=== PATIENT | male | born 1990 | race Caucasian/White ===

== ENCOUNTER 2019-11-08 22:05 | Emergency (ER) | payer OTHER ==
[2019-11-08] MEDS ORDERED: Bacitracin Oint 1 GM U/D Packet TOP ONE (22:19)
[2019-11-08] MEDS ORDERED: Diphtheria,Pertussis(Acell),Tetanus Vaccine 0.5 ML Syringe IM ONE (22:19)
--- NOTE | 2019-11-08 22:25 | EDM.PDOC ---
ED HPI GENERAL MEDICAL PROBLEM - General Chief Complaint: Laceration Stated Complaint: FINGER INJURY RIGHT HAND Time Seen by Provider: 11/08/19 22:14 - History of Present Illness INITIAL COMMENTS - FREE TEXT/NARRATIVE: HISTORY AND PHYSICAL: History of present illness: The patient is a 29-year-old male who is unsure of his tetanus status and has no systemic complaints and presents from work after having his left fifth digit pinched in a piece of machinery. He complains of numbness and discomfort to the finger and a laceration on the dorsal aspect of the finger. The patient is right -hand dominant and denies any other injuries to the remainder of the fingers on the left hand and the hand proximally. Prior to these events he was in his usual state of good health without any issues. He says that movement of the finger causes him discomfort. Review of systems: As per history of present illness and below otherwise all systems reviewed and negative. Past medical history: As per history of present illness and as reviewed below otherwise noncontributory. Surgical history: As per history of present illness and as reviewed below otherwise noncontributory. Social history: No reported history of drug or alcohol abuse. Family history: As per history of present illness and as reviewed below otherwise noncontributory. Physical exam: General: Well developed well-nourished man who is nontoxic and vital signs are noted by me. HEENT: Atraumatic, normocephalic, negative for conjunctival pallor or scleral icterus, mucous membranes moist, throat clear, neck supple, nontender, trachea midline. Lungs: Clear to auscultation, breath sounds equal bilaterally, chest nontender. Heart: S1S2, regular rate and rhythm no overt murmurs Abdomen: Soft, nondistended, nontender. NABS Pelvis: deferred Genitourinary: Deferred. Rectal: Deferred. Extremities: Atraumatic and full range of motion of all extremities with the exception of the left fifth digit where there is discomfort with range of motion but the patient can flex and extend against resistance and there is a 2 cm laceration to the subcutaneous tissue at the middle phalanx. There is no gross soft tissue swelling ecchymosis or erythema and the remainder of the digits on the left hand are without defects deformities or injuries as is the remainder of the left hand and the proximal wrist and forearm., negative for cords or calf pain. Neurovascular unremarkable. Neuro: Awake, alert, oriented. Cranial nerves II through XII unremarkable. Cerebellum unremarkable. Motor and sensory unremarkable throughout. Exam nonfocal. Diagnostics: X-ray left fifth digit Therapeutics: Tdap, irrigation of the wound, lidocaine without epinephrine for suture placement, bacitracin and tube gauze Procedure note: After the wound was cleansed by nursing a digital block was placed with 1% lidocaine without epinephrine and the wound was explored. No foreign bodies were appreciated and the tissue at the skin edges was noted to be very jagged and irregular and some minimal debridement was performed. The skin edges were reapproximated using a total number of # 4 sutures of 4-0 nylon in a simple interrupted fashion. There were no complications and the patient tolerated the procedure well. Bacitracin and a tube gauze was applied by nursing. Impression: Left fifth digit laceration/injury Definitive disposition and diagnosis as appropriate pending reevaluation and review of above. Left Pinky Finger Pain Score (Numeric/FACES): 7 - Related Data Allergies Allergy/AdvReac Type Severity Reaction Status Date / Time No Known Allergies Allergy Verified 11/08/19 22:22 Home Meds: Home Meds . [No Known Home Meds] 11/08/19 [History] ED ROS GENERAL - Review of Systems Review Of Systems: Comprehensive ROS is negative, except as noted in HPI. ED EXAM, SKIN/RASH Exam: See Below (See dictation) Course - Vital Signs Last Recorded V/S: Last Vital Signs Temp 35.8 C 11/08/19 22:19 Pulse 87 11/08/19 22:19 Resp 18 11/08/19 22:19 BP 162/94 H 11/08/19 22:19 Pulse Ox 100 11/08/19 22:19 - Orders/Labs/Meds Orders: Active Orders 24 hr Category Date Time Status Vaccines to be Administered [RC] PER UNIT ROUTINE Care 11/08/19 22:19 Active Fingers Fifth Digit Lt F4 [CR] Stat Exams 11/08/19 22:19 Taken Meds: Medications Discontinued Medications Generic Name Dose Route Start Last Admin Trade Name Freq PRN Reason Stop Dose Admin Bacitracin 1 dose 11/08/19 22:19 Bacitracin Oint 1 Gm TOP 11/08/19 22:20 ONETIME ONE Diphtheria/Tetanus/Acell Pertussis 0.5 ml 11/08/19 22:19 11/08/19 22:36 Adacel IM 11/08/19 22:20 0.5 ml .ONCE ONE Administration Lidocaine HCl 5 ml 11/08/19 22:19 Xylocaine-Mpf 1% INJECT 11/08/19 22:20 ONETIME ONE Departure - Departure Time of Disposition: 22:55 Disposition: Home, Self-Care 01 Condition: Good Clinical Impression: Finger laceration Qualifiers: Encounter type: initial encounter Finger: little finger Damage to nail status: without damage Foreign body presence: without foreign body Laterality: left Qualified Code(s): S61.217A - Laceration without foreign body of left little finger without damage to nail, initial encounter - Discharge Information Referrals: PCP,None [Primary Care Provider] - Forms: ED Department Discharge Additional Instructions: The following information is given to patients seen in the emergency department who are being discharged to home. This information is to outline your options for follow-up care. We provide all patients seen in our emergency department with a follow-up referral. The need for follow-up, as well as the timing and circumstances, are variable depending upon the specifics of your emergency department visit. If you don't have a primary care physician on staff, we will provide you with a referral. We always advise you to contact your personal physician following an emergency department visit to inform them of the circumstance of the visit and for follow-up with them and/or the need for any referrals to a consulting specialist. The emergency department will also refer you to a specialist when appropriate. This referral assures that you have the opportunity for followup care with a specialist. All of these measure are taken in an effort to provide you with optimal care, which includes your followup. Under all circumstances we always encourage you to contact your private physician who remains a resource for coordinating your care. When calling for followup care, please make the office aware that this follow-up is from your recent emergency room visit. If for any reason you are refused follow-up, please contact the [facility] emergency department at and ask to speak to the emergency department charge nurse. [facility] Primary care- Internal Medicine and Family [address] [address] Keep the wound clean and dry for the next 24 hours and then remove dressing and cleanse with mild soap and water pat dry and apply bacitracin or Neosporin. If you need to cover the area please use gauze or breathable dressing and do not apply a Band-Aid. Sutures should be removed in 7 days here in the emergency department or with your provider in the clinic. Return to the ER sooner as needed as discussed Sepsis Event Note - Focused Exam Vital Signs: Vital Signs Temp Pulse Resp BP Pulse Ox 11/08/19 22:19 35.8 C 87 18 162/94 H 100 Date Exam was Performed: 11/08/19 Time Exam was Performed: 22:55 - My Orders Last 24 Hours: My Active Orders 11/08/19 22:19 Vaccines to be Administered [RC] PER UNIT ROUTINE Fingers Fifth Digit Lt F4 [CR] Stat - Assessment/Plan Last 24 Hours: My Active Orders 11/08/19 22:19 Vaccines to be Administered [RC] PER UNIT ROUTINE Fingers Fifth Digit Lt F4 [CR] Stat
--- NOTE | 2019-11-08 23:02 | CR ---
Indication: Pain after laceration Technique: Three views Comparison: None Findings: Bones: Alignment is normal. No fractures or bone lesions. Joint spaces: Unremarkable. Soft tissues: Soft tissue irregularity left 5th digit consistent with laceration without evidence of radiopaque foreign body. Dictated by Lee Phelan MD @ Nov 08 2019 10:59PM Signed by Dr. Lee Phelan @ Nov 08 2019 11:00PM
== END 2019-11-08 23:14 | disposition home or self-care (01) ==
LOC: MW.ED 22:05
DX: S61.217A Laceration without foreign body of left little finger without damage to nail, initial encounter (principal); Z23 Encounter for immunization; W31.9XXA Contact with unspecified machinery, initial encounter; Y99.0 Civilian activity done for income or pay
CPT/HCPCS: 12001; 73140; 90471; 90715; 99283; J2001